=== PATIENT | female | born 1985 | race Caucasian/White ===

== ENCOUNTER 2017-09-28 11:38 | Emergency (ER) | payer OTHER ==
[~2017-09-28] VITALS: Ht 157.5 cm; Wt 109.0 kg
[2017-09-28] MEDS ORDERED: ONDANSETRON HCL 4MG/2ML VIAL IV STA (12:19)
[2017-09-28] MEDS ORDERED: SODIUM CHLORIDE 0.9% 1,000 ML IV ONE (12:19)
[2017-09-28] MEDS ORDERED: MECLIZINE 25MG TABLET PO ONE (12:30)
[2017-09-28 12:46] LABS: BASOPHILS % 0.9 % (0.0-2.0); EOSINOPHILS % 1.6 % (0.0-5.0); HEMATOCRIT. 34.6 % (36.0-48.0); HEMOGLOBIN. 10.9 g/dL (12.0-16.0); LYMPHOCYTES % 25.6 % (20.0-50.0); MEAN CORPUSCULAR HEMOGLOBIN 21.7 pg (28.0-32.0); MEAN CORPUSCULAR VOLUME 68.6 fL (81.0-99.0); MEAN PLATELET VOLUME 8.3 fl (7.4-10.4); MONOCYTES % 5.1 % (2.0-8.0); NEUTROPHILS % 66.8 % (40.0-76.0); PLATELET 415 x1000/uL (130-400); RED BLOOD CELL COUNT 5.04 mill/uL (4.2-5.4); RED CELL DISTRIBUTION WIDTH 16.8 % (11.6-14.6)
[2017-09-28 12:57] LABS: INR 1.1; PROTHROMBIN TIME 11.4 sec (9.4-11.6)
[2017-09-28 13:02] LABS: CARBON DIOXIDE 30 mEq/L (21-32); CHLORIDE 100 mEq/L (98-107)
[2017-09-28 13:08] LABS: PLATELET ESTIMATE SLIGHTLY INCREASED
[2017-09-28 15:08] VITALS: BP 154/89
== END 2017-09-28 15:08 | disposition home or self-care (01) ==
LOC: ER 12:31
DX: H81.399 Other peripheral vertigo, unspecified ear (principal); R53.1 Weakness; R51 Headache; I10 Essential (primary) hypertension; R91.8 Other nonspecific abnormal finding of lung field
CPT/HCPCS: 36415; 70450; 71010; 80053; 81025; 85025; 85610; 93005; 96361; 96374; 99285; J2405; J7030; Z7610; J8597